=== PATIENT | female | born 1945 | race Caucasian/White ===

== ENCOUNTER 2018-06-03 07:52 | Observation (INO) | payer MEDICARE ==
[2018-06-03] MEDS: SOD CHLORIDE 0.9% 1,000 ML IV ×2 (06:00)
[~2018-06-03 07:52] MED LIST: CEFAZOLIN 1 GM INJ; EPHEDrine SULFATE 50 MG/5 ML SYG
[2018-06-03 10:30] LABS: ALANINE AMINOTRANSFERASE 29 IU/L (13-69); ALBUMIN 4.1 g/dl (3.3-4.9); ALBUMIN/GLOBULIN RATIO 1.32; ALKALINE PHOSPHATASE 49 IU/L (42-121); ANION GAP 13 (5-13); ASPARTATE AMINO TRANSFERASE 22 IU/L (15-46); BLOOD UREA NITROGEN 20 mg/dl (7-20); CALCIUM 9.4 mg/dl (8.4-10.2); CARBON DIOXIDE 27 mmol/L (21-31); CHLORIDE 103 mmol/L (97-110); CREATININE 0.64 mg/dl (0.44-1.00); GLUCOSE 104 mg/dl (70-220); SODIUM 143 mmol/L (135-144); TOTAL PROTEIN 7.2 g/dl (6.1-8.1)
[2018-06-03] MEDS ORDERED: MIDAZOLAM 1 MG/ML 2 ML INJ (11:22)
[2018-06-03] MEDS ORDERED: FENTAnyl 50 MCG/ML VIAL (11:27)
[2018-06-03] MEDS ORDERED: MEPERIDINE 25 MG INJ IV (11:30)
[2018-06-03] MEDS ORDERED: ROPIVACAINE 0.5 % 30 ML VIAL (11:30)
[2018-06-03] MEDS ORDERED: LABETALOL HCL 20MG INJ IV (11:30)
[2018-06-03] MEDS ORDERED: PROCHLORPERAZINE 10 MG INJ IV (11:30)
[2018-06-03] MEDS ORDERED: hydrALAzine 20 MG INJ IV (11:30)
[2018-06-03] MEDS ORDERED: HYDROmorphONE 1 MG/5 ML IV SYRINGE IV (11:30)
[2018-06-03] MEDS ORDERED: FENTAnyl 50 MCG/ML VIAL IV (11:30)
[2018-06-03] MEDS ORDERED: PHENYLephrine (100 MCG/ML) 5ML SYG (11:35)
[2018-06-03] MEDS ORDERED: SUCCINYLCHOLINE CHLORIDE 100 MG/5 ML SYG IV (11:59)
[2018-06-03] MEDS ORDERED: ROCURONIUM 50 MG INJ (11:59)
[2018-06-03] MEDS ORDERED: LIDOCAINE 2% (SDV) 5 ML INJ (11:59)
[2018-06-03] MEDS ORDERED: PROPOFOL 20 ML (11:59)
[2018-06-03] MEDS ORDERED: FAMOTIDINE 20 MG INJ (12:00)
[2018-06-03] MEDS ORDERED: ONDANSETRON 4 MG INJ (12:00)
[2018-06-03] MEDS ORDERED: ESMOLOL 10 ML (12:14)
[2018-06-03] MEDS ORDERED: hydrALAzine 20 MG INJ (12:14)
[2018-06-03] MEDS ORDERED: SUGAMMADEX SODIUM 200 MG/2 ML VIAL IV ×2 (12:18→12:21)
[2018-06-03] MEDS: HYDROCODONE/APAP (5/325) TAB PO (12:30)
[2018-06-03] MEDS: HYDROmorphONE 1 MG/5 ML IV SYRINGE IV ×2 (12:50→13:08)
[2018-06-03] MEDS: DIPHENHYDRAMINE 50 MG INJ IV (12:53)
[2018-06-03] MEDS: ONDANSETRON 4 MG INJ IV (14:05)
[2018-06-03] MEDS: IPRATROPIUM (NEB) 0.5 MG/2.5 ML AMP HHN (15:30)
[2018-06-03] MEDS: ALBUTEROL 0.083% (NEB) 2.5 MG/3 ML AMP HHN (16:06)
[2018-06-03] MEDS ORDERED: ONDANSETRON 4 MG INJ IV (18:00)
[2018-06-03] MEDS: morphine 2 MG INJ IV ×2 (18:31→21:36)
[2018-06-03] MEDS: ATORVASTATIN 20 MG TAB PO (20:57)
[2018-06-03] MEDS: INSULIN ASPART [NOVOLOG] 3 ML PEN SC (20:57)
[2018-06-03] MEDS: NS + KCL 20 MEQ 1,000 ML IV (20:58)
[2018-06-04 05:21] LABS: ADD MAN DIFF? NO; BASOPHILS % 0.2 % (0.0-2.0); HEMATOCRIT 35.9 % (37.0-47.0); LYMPHOCYTES # 1.1 10^3/ul (0.8-2.9); LYMPHOCYTES % 6.7 % (15.0-51.0); MEAN CORPUSCULAR HEMOGLOBIN 25.8 pg (29.0-33.0); MEAN CORPUSCULAR HGB CONC 30.6 g/dl (32.0-37.0); MEAN CORPUSCULAR VOLUME 84.3 fl (82.0-101.0); MEAN PLATELET VOLUME 10.1 fl (7.4-10.4); MONOCYTE # 0.9 10^3/ul (0.3-0.9); MONOCYTES % 5.7 % (0.0-11.0); PLATELET COUNT 268 10^3/UL (140-415); RED BLOOD COUNT 4.26 10^6/ul (4.20-5.40); RED CELL DISTRIBUTION WIDTH 14.3 % (11.5-14.5)
[2018-06-04 05:21] LABS: WHITE BLOOD COUNT 16.1 10^3/ul (4.8-10.8)
[2018-06-04 06:09] LABS: ANION GAP 11 (5-13); BLOOD UREA NITROGEN 14 mg/dl (7-20); CALCIUM 8.7 mg/dl (8.4-10.2); CARBON DIOXIDE 30 mmol/L (21-31); CHLORIDE 101 mmol/L (97-110); CREATININE 0.67 mg/dl (0.44-1.00); GLUCOSE 147 mg/dl (70-220); POTASSIUM 4.4 mmol/L (3.5-5.1); SODIUM 142 mmol/L (135-144)
[2018-06-04] MEDS: NS + KCL 20 MEQ 1,000 ML IV ×4 (07:20→22:43)
[2018-06-04] MEDS: morphine 2 MG INJ IV (07:56)
[2018-06-04] MEDS: INSULIN ASPART [NOVOLOG] 3 ML PEN SC ×4 (08:00→20:56)
[2018-06-04] MEDS: metFORMIN 500 MG TAB PO ×2 (08:11→18:26)
[2018-06-04] MEDS: LOSARTAN 50 MG TAB PO (08:12)
[2018-06-04] MEDS: HYDROCHLOROTHIAZIDE 25 MG TAB PO (09:11)
[2018-06-04] MEDS: HYDROCODONE/APAP (5/325) TAB PO ×2 (11:09→15:20)
[2018-06-04] MEDS: ATORVASTATIN 20 MG TAB PO (20:54)
[2018-06-05] MEDS: ACETAMINOPHEN 325 MG TAB PO ×2 (00:23→21:00)
[2018-06-05 05:56] LABS: ADD MAN DIFF? NO; BASOPHILS % 0.3 % (0.0-2.0); EOSINOPHILS % 0.1 % (0.0-7.0); HEMATOCRIT 34.3 % (37.0-47.0); HEMOGLOBIN 10.7 g/dl (12.0-16.0); LYMPHOCYTES # 1.4 10^3/ul (0.8-2.9); LYMPHOCYTES % 9.5 % (15.0-51.0); MEAN CORPUSCULAR HEMOGLOBIN 26.6 pg (29.0-33.0); MEAN CORPUSCULAR HGB CONC 31.2 g/dl (32.0-37.0); MEAN CORPUSCULAR VOLUME 85.1 fl (82.0-101.0); MEAN PLATELET VOLUME 9.7 fl (7.4-10.4); MONOCYTE # 0.8 10^3/ul (0.3-0.9); MONOCYTES % 5.4 % (0.0-11.0); NEUTROPHIL # 12.5 10^3/ul (1.6-7.5); NEUTROPHILS % 84.1 % (39.0-77.0); PLATELET COUNT 254 10^3/UL (140-415); RED BLOOD COUNT 4.03 10^6/ul (4.20-5.40); RED CELL DISTRIBUTION WIDTH 14.3 % (11.5-14.5)
[2018-06-05 05:56] LABS: WHITE BLOOD COUNT 14.9 10^3/ul (4.8-10.8)
[2018-06-05 06:58] LABS: ANION GAP 9 (5-13); BLOOD UREA NITROGEN 8 mg/dl (7-20); CALCIUM 8.7 mg/dl (8.4-10.2); CARBON DIOXIDE 29 mmol/L (21-31); CHLORIDE 104 mmol/L (97-110); CREATININE 0.57 mg/dl (0.44-1.00); GLUCOSE 135 mg/dl (70-220); POTASSIUM 4.4 mmol/L (3.5-5.1); SODIUM 142 mmol/L (135-144)
[2018-06-05] MEDS: HYDROCODONE/APAP (5/325) TAB PO ×3 (07:55→19:42)
[2018-06-05] MEDS: INSULIN ASPART [NOVOLOG] 3 ML PEN SC ×4 (08:00→20:58)
[2018-06-05] MEDS: HYDROCHLOROTHIAZIDE 25 MG TAB PO (08:05)
[2018-06-05] MEDS: metFORMIN 500 MG TAB PO ×2 (08:05→17:24)
[2018-06-05] MEDS: LOSARTAN 50 MG TAB PO (08:06)
[2018-06-05] MEDS: NS + KCL 20 MEQ 1,000 ML IV ×3 (10:00→23:20)
[2018-06-05 15:09] LABS: ALANINE AMINOTRANSFERASE 85 IU/L (13-69); ALBUMIN 3.6 g/dl (3.3-4.9); ALBUMIN/GLOBULIN RATIO 1.28; ALKALINE PHOSPHATASE 48 IU/L (42-121); ANION GAP 10 (5-13); ASPARTATE AMINO TRANSFERASE 50 IU/L (15-46); BLOOD UREA NITROGEN 9 mg/dl (7-20); CALCIUM 8.6 mg/dl (8.4-10.2); CARBON DIOXIDE 26 mmol/L (21-31); CHLORIDE 98 mmol/L (97-110); GLUCOSE 186 mg/dl (70-220); POTASSIUM 4.3 mmol/L (3.5-5.1); SODIUM 134 mmol/L (135-144); TOTAL PROTEIN 6.4 g/dl (6.1-8.1)
[2018-06-05] MEDS: ATORVASTATIN 20 MG TAB PO (20:58)
[2018-06-06] MEDS: NS + KCL 20 MEQ 1,000 ML IV ×2 (02:11→12:40)
[2018-06-06 05:37] LABS: ADD MAN DIFF? NO
[2018-06-06 05:40] LABS: WHITE BLOOD COUNT 12.2 10^3/ul (4.8-10.8)
[2018-06-06 05:40] LABS: BASOPHILS % 0.3 % (0.0-2.0); EOSINOPHILS # 0.1 10^3/ul (0.0-0.5); EOSINOPHILS % 1.2 % (0.0-7.0); HEMATOCRIT 32.4 % (37.0-47.0); LYMPHOCYTES # 1.4 10^3/ul (0.8-2.9); LYMPHOCYTES % 11.5 % (15.0-51.0); MEAN CORPUSCULAR HEMOGLOBIN 26.3 pg (29.0-33.0); MEAN CORPUSCULAR HGB CONC 30.9 g/dl (32.0-37.0); MEAN CORPUSCULAR VOLUME 85.3 fl (82.0-101.0); MEAN PLATELET VOLUME 9.9 fl (7.4-10.4); MONOCYTE # 0.8 10^3/ul (0.3-0.9); MONOCYTES % 6.2 % (0.0-11.0); NEUTROPHIL # 9.8 10^3/ul (1.6-7.5); NEUTROPHILS % 80.4 % (39.0-77.0); PLATELET COUNT 269 10^3/UL (140-415); RED CELL DISTRIBUTION WIDTH 14.4 % (11.5-14.5)
[2018-06-06 06:10] LABS: ALANINE AMINOTRANSFERASE 76 IU/L (13-69); ALBUMIN 3.2 g/dl (3.3-4.9); ALBUMIN/GLOBULIN RATIO 1.18; ALKALINE PHOSPHATASE 51 IU/L (42-121); ANION GAP 6 (5-13); ASPARTATE AMINO TRANSFERASE 38 IU/L (15-46); BLOOD UREA NITROGEN 11 mg/dl (7-20); CALCIUM 8.3 mg/dl (8.4-10.2); CARBON DIOXIDE 31 mmol/L (21-31); CHLORIDE 102 mmol/L (97-110); CREATININE 0.57 mg/dl (0.44-1.00); GLUCOSE 116 mg/dl (70-220); POTASSIUM 4.8 mmol/L (3.5-5.1); SODIUM 139 mmol/L (135-144); TOTAL PROTEIN 5.9 g/dl (6.1-8.1)
[2018-06-06] MEDS: HYDROCODONE/APAP (5/325) TAB PO (06:57)
[2018-06-06] MEDS: INSULIN ASPART [NOVOLOG] 3 ML PEN SC ×2 (08:00→12:00)
[2018-06-06] MEDS: metFORMIN 500 MG TAB PO (08:45)
[2018-06-06] MEDS: LOSARTAN 50 MG TAB PO (08:45)
[2018-06-06] MEDS: HYDROCHLOROTHIAZIDE 25 MG TAB PO (08:45)
[2018-06-06] MEDS: ACETAMINOPHEN 325 MG TAB PO (11:53)
== END 2018-06-06 15:40 | disposition home or self-care (01) ==
LOC: SDS 07:52 → 2NE 15:31
PROVIDERS: Surgery
DX: K80.10 Calculus of gallbladder with chronic cholecystitis without obstruction (principal); I10 Essential (primary) hypertension; E11.9 Type 2 diabetes mellitus without complications; E78.5 Hyperlipidemia, unspecified; Z85.43 Personal history of malignant neoplasm of ovary; Z92.21 Personal history of antineoplastic chemotherapy
CPT/HCPCS: 47562; 71045; 80048; 80053; 82962; 85025; 88304